=== PATIENT | female | born 1975 ===

== ENCOUNTER 2017-05-13 13:42 | Emergency (ER) | payer MEDICAID, OTHER ==
[2017-05-13 13:43] VITALS: BMI 28.8
[2017-05-13 13:47] VITALS: RESP 18
[2017-05-13 15:16] VITALS: TEMP 99; O2SAT 98
[2017-05-13] MEDS ORDERED: Sodium Chloride 0.9% 1,000 ML IV STA (15:17)
--- NOTE | 2017-05-13 15:17 | ED PDOC ---
Arrival/HPI - General Chief Complaint: Flu-like Symptoms Time Seen by Provider: 05/13/17 13:51 Historian: Patient - History of Present Illness Narrative History of Present Illness (Text): 05/13/17 15:14 you were treated in the ED today for fever and body aches x 1 day otherwise without any nausea/vomiting/headache/dizziness/difficulty breathing/chest pain/ abdomen pain/numbness/tingling/loss of limb function/pain with urination. Time/Duration: Other (1 day) Symptom Course: Unchanged Past Medical History - Provider Review Nursing Documentation Reviewed: Yes - Infectious Disease Hx of Infectious Diseases: None - Tetanus Immunization Tetanus Immunization: Unknown - Past Medical History Past Medical History: No Previous - Pulmonary Hx Respiratory Disorders: Yes Hx Asthma: Yes (as a child) - Renal Hx Renal Disorder: Yes Hx Kidney Stones: Yes (passed naturally) - Genitourinary/Gynecological Hx Genitourinary Disorders: Yes Other/Comment: multiparity - Psychiatric Hx Substance Use: No - Surgical History Other/Comment: LEEP - Anesthesia Hx Anesthesia: Yes Hx Anesthesia Reactions: No - Suicidal Assessment Feels Threatened In Home Enviroment: No Family/Social History - Physician Review Nursing Documentation Reviewed: Yes Family/Social History: No Known Family HX Smoking Status: Current Some Days Smoker Hx Alcohol Use: Yes Frequency of alcohol use: Few days per week Hx Substance Use: No Allergies/Home Meds Allergies/Adverse Reactions: Allergies No Known Allergies Allergy (Verified 05/13/17 13:44) Review of Systems - Physician Review All systems were reviewed & negative as marked: Yes - Review of Systems Constitutional: Fevers Respiratory: absent: SOB Cardiovascular: absent: Chest Pain Gastrointestinal: absent: Abdominal Pain, Nausea, Vomiting Genitourinary Female: absent: Dysuria Musculoskeletal: Myalgias Neurological: absent: Headache, Dizziness, Focal Weakness Physical Exam Vital Signs Reviewed: Yes Vital Signs Temp Pulse Resp BP Pulse Ox 05/13/17 18:14 68 18 107/73 98 05/13/17 16:45 66 18 105/71 98 05/13/17 15:15 99.0 F 64 18 103/69 98 05/13/17 13:44 98.4 F 64 18 101/68 100 Temperature: Afebrile Blood Pressure: Normal Pulse: Regular Respiratory Rate: Normal Appearance: Positive for: Well-Appearing, Non-Toxic, Comfortable Pain Distress: None Mental Status: Positive for: Alert and Oriented X 3 - Systems Exam Head: Present: Atraumatic, Normocephalic Pupils: Present: PERRL Extroacular Muscles: Present: EOMI Conjunctiva: Present: Normal Ears: Present: Normal, NORMAL TM, Erythema Mouth: Present: Moist Mucous Membranes Pharnyx: Present: Normal. No: ERYTHEMA, EXUDATE, TONSILS ENLARGED Neck: Present: Normal Range of Motion Respiratory/Chest: Present: Clear to Auscultation, Good Air Exchange. No: Respiratory Distress, Accessory Muscle Use Cardiovascular: Present: Regular Rate and Rhythm, Normal S1, S2. No: Murmurs Abdomen: Present: Normal Bowel Sounds. No: Tenderness, Distention, Peritoneal Signs Back: Present: Normal Inspection Upper Extremity: Present: Normal Inspection, NORMAL PULSES. No: Cyanosis, Edema Lower Extremity: Present: Normal Inspection, NORMAL PULSES. No: Edema Neurological: Present: GCS=15, CN II-XII Intact, Speech Normal Skin: Present: Warm, Dry, Normal Color. No: Rashes Psychiatric: Present: Alert, Oriented x 3, Normal Insight, Normal Concentration Medical Decision Making ED Course and Treatment: 05/13/17 15:14 you were treated in the ED today for fever and body aches x 1 day otherwise without any nausea/vomiting/headache/dizziness/difficulty breathing/chest pain/ abdomen pain/numbness/tingling/loss of limb function/pain with urination. You were otherwise breathing easily, pink/moist lips, smiling when you speaking, good strength/sensation, alert/oriented, walking easily, clear lungs, no abdomen tenderness, no fever temp 98.4, stable heart rate 64, stable breathing rate 18, excellent oxygen level 100% room air, blood pressure 100/68, you have blood tests no infection count 5, stable blood level hemoglobin 12/platelets 320 , stable chemistry, heart blood test negative less than 0.01, urine test mild sign of infection and due to your symptoms of frequency antibiotics given, urine test negative, influenza negative, radiology chest xray showed no active disease, ECG normal sinus rhythm, chest xray no acute findings, intravenous fluids, motrin, macrobid, observation done in the ED with improvement, counselled to drink lots of fluids and thus discharged home. 1. Recommend macrobid as directed for urine infection control. 2. Recommend if persistent cough/body aches in 24-48hrs can start tamiflu as directed for flu control. 3. Recommend follow-up primary care 2-3 days to review symptoms, referral to pulmonary/thoracic surgery clinic for nodules found on xray chest to ensure no complications/cancer development. 4. If any worsening pain, fever, chills, nausea, vomiting, difficulty breathing, numbness, loss of limb function , pain with urination or any medical condition then return to the ED. Report date: 05/13/17 15:44 Procedure: Chest xray Dictated by: Ra Del Castillo DO Impression: No active disease 05/13/17 16:19 05/13/17 17:19 05/13/17 17:21 05/13/17 17:51 05/13/17 17:53 Reassessment Condition: Re-examined, Improved - Lab Interpretations Lab Results: 05/13/17 16:54 05/13/17 16:54 Lab Results 05/13/17 16:54: Influenza Typ A,B (EIA) Negative for flu a/b 05/13/17 16:54: PT 12.1, INR 1.06, APTT 31.3 05/13/17 16:54: Sodium 141, Potassium 4.2, Chloride 106, Carbon Dioxide 24, Anion Gap 16, BUN 14, Creatinine 0.9, Est GFR ( Amer) > 60, Est GFR (Non- Af Amer) > 60, Random Glucose 85, Calcium 9.4, Magnesium 2.1, Total Bilirubin 0.4, AST 21, ALT 30, Alkaline Phosphatase 42, Lactate Dehydrogenase 389, Total Creatine Kinase 79, Troponin I < 0.01, Total Protein 7.2, Albumin 4.0, Globulin 3.1, Albumin/Globulin Ratio 1.3 05/13/17 16:54: WBC 5.6, RBC 4.13, Hgb 12.5, Hct 37.9, MCV 91.8, MCH 30.3, MCHC 33.0, RDW 13.7, Plt Count 320, MPV 9.4, Gran % 71.4 H, Lymph % (Auto) 23.4, Dixon % (Auto) 4.3, Eos % (Auto) 0.7 L, Baso % (Auto) 0.2, Gran # 4.00, Lymph # ( Auto) 1.3, Dixon # (Auto) 0.2, Eos # (Auto) 0.0, Baso # (Auto) 0.01 05/13/17 15:40: Urine Color Yellow, Urine Appearance Clear, Urine pH 6.0, Ur Specific [place] 1.025, Urine Protein Negative, Urine Glucose (UA) Negative, Urine Ketones 15 H, Urine Blood Negative, Urine Nitrate Negative, Urine Bilirubin Negative, Urine Urobilinogen 0.2, Ur Leukocyte Esterase Trace H, Urine RBC Negative, Urine WBC 5 - 10, Ur Epithelial Cells 3 - 4, Urine Bacteria Few I have reviewed the lab results: Yes - RAD Interpretation Radiology Orders: 05/13/17 15:12 CHEST PORTABLE [RAD] [employer] Director: Radiologist (see mdm) - EKG Interpretation Interpreted by ED Physician: Yes (NSR) Type: 12 lead EKG - Medication Orders Current Medication Orders: Discontinued Medications Sodium Chloride (Sodium Chloride 0.9%) 1,000 mls @ 999 mls/hr IV .Q1H1M STA Stop: 05/13/17 16:17 Last Admin: 05/13/17 16:57 Dose: 999 mls/hr eMAR Start Stop Document 05/13/17 16:57 HI (Rec: 05/13/17 16:57 AL [id number]) Intravenous Solution Start Date 05/13/17 Start Time 16:57 Ibuprofen (Motrin Tab) 800 mg PO STAT STA Stop: 05/13/17 15:19 Last Admin: 05/13/17 16:57 Dose: 800 mg MAR Pain/Vitals Document 05/13/17 16:57 HI (Rec: 05/13/17 16:57 [id number] Pain Reassessment Is This A Pain ReAssessment? No Disposition/Present on Arrival - Present on Arrival Any Indicators Present on Arrival: No History of DVT/PE: No History of Uncontrolled Diabetes: No Urinary Catheter: No History of Decub. Ulcer: No History Surgical Site Infection Following: None - Disposition Have Diagnosis and Disposition been Completed?: Yes Diagnosis: UTI (urinary tract infection), Viral syndrome Disposition: HOME/ ROUTINE Disposition Time: 17:55 Patient Plan: Discharge Patient Problems: Current Active Problems Problem Status Onset UTI (urinary tract infection) Acute Viral syndrome Acute Condition: IMPROVED Discharge Instructions (ExitCare): Urinary Tract Infections in Adults Additional Instructions: you were treated in the ED today for fever and body aches x 1 day otherwise without any nausea/vomiting/headache/dizziness/difficulty breathing/chest pain/ abdomen pain/numbness/tingling/loss of limb function/pain with urination. You were otherwise breathing easily, pink/moist lips, smiling when you speaking, good strength/sensation, alert/oriented, walking easily, clear lungs, no abdomen tenderness, no fever temp 98.4, stable heart rate 64, stable breathing rate 18, excellent oxygen level 100% room air, blood pressure 100/68, you have blood tests no infection count 5, stable blood level hemoglobin 12/platelets 320 , stable chemistry, heart blood test negative less than 0.01, urine test mild sign of infection and due to your symptoms of frequency antibiotics given, urine test negative, influenza negative, radiology chest xray showed no active disease, ECG normal sinus rhythm, chest xray no acute findings, intravenous fluids, motrin, macrobid, observation done in the ED with improvement, counselled to drink lots of fluids and thus discharged home. 1. Recommend macrobid as directed for urine infection control. 2. Recommend if persistent cough/body aches in 24-48hrs can start tamiflu as directed for flu control. 3. Recommend follow-up primary care 2-3 days to review symptoms, referral to pulmonary/thoracic surgery clinic for nodules found on xray chest to ensure no complications/cancer development. 4. If any worsening pain, fever, chills, nausea, vomiting, difficulty breathing, numbness, loss of limb function , pain with urination or any medical condition then return to the ED. Prescriptions: Nitrofurantoin Macrocrystals [Macrobid] 100 mg PO Q12 7 Days #14 cap Oseltamivir [Tamiflu] 75 mg PO Q12 5 Days #10 cap Referrals: Sarah Berrios MD [Primary Care Provider] - Follow up with primary Forms: BEK[facility] ([place])
--- NOTE | 2017-05-13 15:46 | RAD ---
HISTORY: 42yoF, cough COMPARISON: Comparison made with prior chest radiograph 08/18/2014 FINDINGS: LUNGS: No active pulmonary disease. Nodular appearing densities medial upper lung love felt to be secondary to costal cartilage artifact 1st rib PLEURA: No significant pleural effusion identified, no pneumothorax apparent. CARDIOVASCULAR: Normal. OSSEOUS STRUCTURES: No significant abnormalities. VISUALIZED UPPER ABDOMEN: Normal. OTHER FINDINGS: None. IMPRESSION: No active disease.
[2017-05-13 16:11] LABS: URINE BILIRUBIN NEGATIVE (NEGATIVE); URINE BLOOD NEGATIVE (NEGATIVE); URINE GLUCOSE (UA) NEGATIVE (NEGATIVE); URINE LEUKOCYTE ESTERASE TRACE Leu/uL (NEGATIVE); URINE NITRATE NEGATIVE (NEGATIVE); URINE PROTEIN NEGATIVE mg/dL (<30 mg/dL); URINE UROBILINOGEN 0.2 E.U./dL (<1 E.U./dL)
[2017-05-13 16:15] LABS: URINE APPEARANCE CLEAR (CLEAR); URINE COLOR YELLOW (YELLOW)
[2017-05-13 16:18] LABS: URINE BACTERIA FEW (NEG); URINE RBC NEGATIVE /hpf (0-2)
[2017-05-13 17:08] LABS: BASO # 0.01 K/mm3 (0.0-2.0); BASO % 0.2 % (0.0-3.0); EOS % 0.7 % (1.5-5.0); GRAN % 71.4 % (50.0-68.0); HEMOGLOBIN 12.5 g/dL (12.0-16.0); LYMPH # 1.3 (1.2-3.4); LYMPH % 23.4 % (22.0-35.0); MEAN CELL VOLUME 91.8 fl (80.0-105.0); MEAN CORPUSCULAR HEMOGLOBIN 30.3 pg (25.0-35.0); MEAN PLATELET VOLUME 9.4 fl (7.0-11.0); MONO # 0.2 (0.1-0.6); MONO % 4.3 % (1.0-6.0); RBC 4.13 10^6/uL (3.5-6.1); RED CELL DISTRIBUTION WIDTH 13.7 % (11.5-14.5); WHITE BLOOD COUNT 5.6 10^3/ul (4.5-11.0)
[2017-05-13 17:15] LABS: INR 1.06 (0.93-1.08); PARTIAL THROMBOPLASTIN TIME 31.3 Seconds (25.1-36.5); PROTHROMBIN TIME 12.1 SECONDS (9.4-12.5)
[2017-05-13 17:22] LABS: ALB/GLOB RATIO 1.3 (1.1-1.8); ALT/SGPT 30 U/L (7-56); AST/SGOT 21 U/L (14-36); BLOOD UREA NITROGEN 14 mg/dL (7-21); CALCIUM 9.4 mg/dL (8.4-10.5); GFR AFRICAN-AMERICAN > 60; GFR NON-AFRICAN AMERICAN > 60; MAGNESIUM 2.1 mg/dL (1.7-2.2)
[2017-05-13 17:33] LABS: TROPONIN I < 0.01 ng/mL
[2017-05-13 18:15] VITALS: BP 107/73; PULSE 68
--- NOTE | 2017-05-14 11:06 | CARD ---
APPROVED REPORT EKG Measurement Heart [id number] <Conclusion> Poor data quality, interpretation may be adversely affected Normal sinus rhythm Normal ECG
== END 2017-05-13 18:30 | disposition home or self-care (01) ==
LOC: ED 13:42
DX: N39.0 Urinary tract infection, site not specified (principal); B34.9 Viral infection, unspecified
CPT/HCPCS: 71045; 80053; 81001; 82550; 83615; 83735; 84484; 85025; 85610; 85730; 87086; 87804; 93005; 99284; J7040